=== PATIENT | female | born 2000 | race Caucasian/White ===

== ENCOUNTER 2022-03-08 10:16 | Inpatient (IN) ==
--- NOTE | 2022-03-08 10:44 | Emergency Department Note ---
Impression & Plan Suicidal ideation, Depression ED Provider Note NAME: BHARATH ANAYA AGE: 22 SEX: F ARRIVES VIA: Walk-In INFORMANT: Patient ED PROVIDER(S): Vinod Williamson MD CHIEF COMPLAINT: Suicidal ideation PLAN: Disposition: Inpatient psychiatric admission, 3 S. MEDICAL DECISION MAKING: The patient is a pleasant 22-year-old woman with a past medical history of PTSD and borderline personality disorder who presents to the emergency department accompanied by her mother for evaluation of worsening depression/suicidal ideation and the development of command auditory hallucinations over the past month after being discharged from inpatient psychiatric admission [place] where she reports she was started on Lexapro. She feels as though her worsening symptoms are related to the medication. She denies any recent illness including fevers, chills, cough, congestion, GI or symptoms. She reports that she has a history of depression and suicidal ideation. She reports that when she was in the 10th grade she did cut her legs. Patient reports that she wants help and is interested in voluntary inpatient psychiatric admission. On arrival the patient is melancholy and tearful appearing but no acute distress, afebrile stable vital signs. She reports she herself does not want to hurt her self and has been doing what she can to get better but feels as though she cannot control the feelings in her head and the voice in her head that is telling her to kill her self. She is worried she could act them out. WBC, H/H and platelets within normal limits. Chemistry without metabolic acidosis. Electrolytes LFTs are unremarkable. TSH within normal limits. hCG was negative. UA appears contaminated and the patient denies any urinary symptoms. Drug screen was positive for THC. Covid-19 RNA, NAAT negative. The patient was medically cleared. The patient was accepted to 3 S. and 201 was signed. Triage Nursing notes reviewed and agree them. Prior medical records reviewed Vital Signs: reviewed and remarkable for no significant abnormalities Differential diagnosis: Mood disorder, infection, hypoglycemia, electrolyte abnormalities, cardiac sources, intracerebral event, toxicologic, trauma, neurologic, as well as other pathologies. ER treatment provided: See below. Laboratory studies: See below HPI: The patient is a pleasant 22-year-old woman with a past medical history of PTSD and borderline personality disorder who presents to the emergency department accompanied by her mother for evaluation of worsening depression/suicidal ideation and the development of command auditory hallucinations over the past month after being discharged from inpatient psychiatric admission [place] where she reports she was started on Lexapro. She feels as though her worsening symptoms are related to the medication. She denies any recent illness including fevers, chills, cough, congestion, GI or symptoms. She reports that she has a history of depression and suicidal ideation. She reports that when she was in the 10th grade she did cut her legs. ROS: See above HPI for pertinent positives & negatives. A total of 10 systems reviewed and were otherwise negative. VITALS:See Below PHYSICAL EXAMINATION: GENERAL: Awake, alert, melancholy/tearful-appearing, in no distress HENT: Normocephalic, atraumatic. Oropharynx unremarkable. EYES: Normal conjunctiva. Sclera non-icteric. NECK: Supple. No nuchal rigidity. FROM. No JVD. RESPIRATORY: Clear to auscultation. CARDIAC: Regular rate, normal rhythm. Extremities warm and well perfused. Pulses equal. ABDOMEN: Soft, non-distended. No tenderness to palpation. No rebound or guarding. No masses. RECTAL: Deferred. MUSCULOSKELETAL: Chest examination reveals no tenderness. The back is symmetrical on inspection without obvious abnormality. There is no CVA te nderness to palpation. No joint edema. LOWER EXTREMITIES: Calves are equal size bilaterally and non-tender. No edema. No discoloration. NEURO: Normal sensorium. No sensory or motor deficits noted. SKIN: No rash or jaundice noted. PSYCH: Reports depression, SI, Command auditory hallucinations. Vinod Williamson MD Past Med/Surg History Medical History Borderline personality disorder PTSD (post-traumatic stress disorder) Family History Other Family history non-contributory Social History Smoking Status: Former smoker Tobacco Type: Cigarettes Preferred Language: Filipino Communication Ability: Effective [employer] Marker Required: No Beliefs That Will Affect Care: None Feels Safe at Home: Yes Assistive Devices: None Allergies Allergies Allergy/AdvReac Type Severity Reaction Status Date / Time No Known Allergies Allergy Unverified 03/08/22 10:56 Home Meds Home Medications Medication Instructions Recorded Confirmed Control 03/08/22 escitalopram oxalate 20 mg tablet 20 mg PO DAILY 03/08/22 03/08/22 (Lexapro) omeprazole 20 mg capsule,delayed 20 mg PO DAILY 03/08/22 03/08/22 release Results & Data (ED) Vital Signs Vital Signs - 24 hr 03/08/22 10:23 03/08/22 14:39 03/08/22 15:00 Temperature 36.8 C 36.8 C Temperature Source Temporal Artery Scan Oral Pulse Rate 85 Pulse Rate [Finger] 68 85 Pulse Rhythm [Finger] Regular Pulse Strength [Finger] Normal Respiratory Rate 18 18 18 Respiratory Effort / Characteristics Non-Labored Spontaneous Non-Labored Spontaneous Respiratory Depth Normal Respiratory Pattern Regular Regular Blood Pressure 135/87 Blood Pressure [Right Arm] 107/62 107/62 Blood Pressure Mean 103 Blood Pressure Mean [Right Arm] 77 77 Blood Pressure Position [Right Arm] Lying Pulse Oximetry 99 98 98 Oxygen Delivery Method Room Air Room Air Room Air Sepsis Recent Fever Within 48 Hours No Sepsis New/Unexplained Change in Mental Status No Sepsis Action Taken by Nursing No Action Required Laboratory Data Attestation: I reviewed the patient's lab results. Result diagrams: 03/08/22 10:44 03/08/22 10:44 Lab Results 03/08/22 03/08/22 03/08/22 Range/Units 10:34 10:34 10:44 WBC 7.41 (4.8-10.8) K/uL RBC 4.35 (4.2-5.4) M/uL Hgb 13.5 (12.0-16.0) g/dL Hct 39.0 (37-47) % MCV 89.7 (80-100) fL MCH 31.0 (25-34) pg MCHC 34.6 (32-36) g/dL RDW Std Deviation 40.6 (36.4-46.3) fL RDW Coeff of Reuben 12.4 (11.5-14.5) % Plt Count 325 (130-400) K/uL MPV 8.9 (7.4-10.4) fL Immature Gran % (Auto) 0.1 % Neut % (Auto) 74.8 % Lymph % (Auto) 17.5 % Garvin % (Auto) 5.9 % Eos % (Auto) 1.3 % Baso % (Auto) 0.4 % Neut # (Auto) 5.53 (1.4-6.5) K/uL Lymph # (Auto) 1.30 (1.2-3.4) K/uL Garvin # (Auto) 0.44 (0.11-0.59) K/uL Eos # (Auto) 0.10 (0-0.5) K/uL Baso # (Auto) 0.03 (0-0.2) K/uL Immature Gran # (Auto) 0.01 (0.00-0.02) K/uL Sodium (136-145) mmol/L Potassium (3.5-5.1) mmol/L Chloride (98-107) mmol/L Carbon Dioxide (21-32) mmol/L Anion Gap (3-11) BUN (6-23) mg/dl Creatinine (0.6-1.2) mg/dl Est Cr Clr Drug Dosing ml/min Est GFR ( Amer) ml/min Est GFR (Non-Af Amer) ml/min BUN/Creatinine Ratio (10-20) Glucose (70-99(Fasting)) mg/dl Calcium (8.5-10.1) mg/dl Total Bilirubin (0.2-1.0) mg/dl AST (13-39) U/L ALT (7-52) U/L Alkaline Phosphatase (34-104) U/L Total Protein (6.0-8.3) gm/dl Albumin (3.4-5.0) gm/dl Globulin (2.5-4.0) gm/dl Albumin/Globulin Ratio (0.9-2) TSH (0.300-4.500) uIu/ml HCG, Qual (Negative) Urine Color Yellow Urine Appearance Clear (Clear) Urine pH 6.5 (4.5-7.5) Ur Specific [place] 1.018 (1.000-1.030) Urine Protein 2+ H (Negative) Urine Glucose (UA) Negative (Negative) Urine Ketones 1+ H (Negative) Urine Blood Negative (Negative) Urine Nitrite Negative (Negative) Urine Bilirubin Negative (Negative) Urine Urobilinogen Negative (Negative) Ur Leukocyte Esterase Negative (Negative) Urine WBC (Auto) 1-5 (0-5) /hpf Urine RBC (Auto) 0-4 (0-4) /hpf U Hyaline Cast (Auto) 1-5 (0-5) /lpf U Epithel Cells (Auto) >30 H (0-5) /lpf Urine Bacteria (Auto) 1+ H (Negative) POC Ur Test (NEG) Salicylates (3.0-30) mg/dl Urine Opiates Screen Neg (Neg) Ur Methadone, Qual Neg (Neg) Acetaminophen (10-30) ug/ml Urine Barbiturates Neg (Neg) Ur Phencyclidine (PCP) Neg (Neg) U Amphetamin/Meth Scrn Neg (Neg) MDMA (Ecstasy) Screen Neg (Neg) U Benzodiazepines Scrn Neg (Neg) Ur Cocaine Metabolite Neg (Neg) U Marijuana (THC) Screen Pos H (Neg) Ethyl Alcohol mg/dL (<10.0) mg/dl SARS-CoV-2, RNA, NAAT (NEGATIVE) 03/08/22 03/08/22 03/08/22 Range/Units 10:44 10:44 10:44 WBC (4.8-10.8) K/uL RBC (4.2-5.4) M/uL Hgb (12.0-16.0) g/dL Hct (37-47) % MCV (80-100) fL MCH (25-34) pg MCHC (32-36) g/dL RDW Std Deviation (36.4-46.3) fL RDW Coeff of Reuben (11.5-14.5) % Plt Count (130-400) K/uL MPV (7.4-10.4) fL Immature Gran % (Auto) % Neut % (Auto) % Lymph % (Auto) % Garvin % (Auto) % Eos % (Auto) % Baso % (Auto) % Neut # (Auto) (1.4-6.5) K/uL Lymph # (Auto) (1.2-3.4) K/uL Garvin # (Auto) (0.11-0.59) K/uL Eos # (Auto) (0-0.5) K/uL Baso # (Auto) (0-0.2) K/uL Immature Gran # (Auto) (0.00-0.02) K/uL Sodium 137 (136-145) mmol/L Potassium 4.2 (3.5-5.1) mmol/L Chloride 108 H (98-107) mmol/L Carbon Dioxide 21 (21-32) mmol/L Anion Gap 8 (3-11) BUN 10 (6-23) mg/dl Creatinine 0.69 (0.6-1.2) mg/dl Est Cr Clr Drug Dosing 125.2 ml/min Est GFR ( Amer) 144.2 ml/min Est GFR (Non-Af Amer) 124.4 ml/min BUN/Creatinine Ratio 14.5 (10-20) Glucose 85 (70-99(Fasting)) mg/dl Calcium 9.4 (8.5-10.1) mg/dl Total Bilirubin 0.7 (0.2-1.0) mg/dl AST 15 (13-39) U/L ALT 12 (7-52) U/L Alkaline Phosphatase 59 (34-104) U/L Total Protein 7.6 (6.0-8.3) gm/dl Albumin 4.7 (3.4-5.0) gm/dl Globulin 2.9 (2.5-4.0) gm/dl Albumin/Globulin Ratio 1.6 (0.9-2) TSH 1.635 (0.300-4.500) uIu/ml HCG, Qual (Negative) Urine Color Urine Appearance (Clear) Urine pH (4.5-7.5) Ur Specific [place] (1.000-1.030) Urine Protein (Negative) Urine Glucose (UA) (Negative) Urine Ketones (Negative) Urine Blood (Negative) Urine Nitrite (Negative) Urine Bilirubin (Negative) Urine Urobilinogen (Negative) Ur Leukocyte Esterase (Negative) Urine WBC (Auto) (0-5) /hpf Urine RBC (Auto) (0-4) /hpf U Hyaline Cast (Auto) (0-5) /lpf U Epithel Cells (Auto) (0-5) /lpf Urine Bacteria (Auto) (Negative) POC Ur Test (NEG) Salicylates < 3.0 L (3.0-30) mg/dl Urine Opiates Screen (Neg) Ur Methadone, Qual (Neg) Acetaminophen < 3 L (10-30) ug/ml Urine Barbiturates (Neg) Ur Phencyclidine (PCP) (Neg) U Amphetamin/Meth Scrn (Neg) MDMA (Ecstasy) Screen (Neg) U Benzodiazepines Scrn (Neg) Ur Cocaine Metabolite (Neg) U Marijuana (THC) Screen (Neg) Ethyl Alcohol mg/dL (<10.0) mg/dl SARS-CoV-2, RNA, NAAT (NEGATIVE) 03/08/22 03/08/22 03/08/22 Range/Units 10:44 10:44 10:59 WBC (4.8-10.8) K/uL RBC (4.2-5.4) M/uL Hgb (12.0-16.0) g/dL Hct (37-47) % MCV (80-100) fL MCH (25-34) pg MCHC (32-36) g/dL RDW Std Deviation (36.4-46.3) fL RDW Coeff of Reuben (11.5-14.5) % Plt Count (130-400) K/uL MPV (7.4-10.4) fL Immature Gran % (Auto) % Neut % (Auto) % Lymph % (Auto) % Garvin % (Auto) % Eos % (Auto) % Baso % (Auto) % Neut # (Auto) (1.4-6.5) K/uL Lymph # (Auto) (1.2-3.4) K/uL Garvin # (Auto) (0.11-0.59) K/uL Eos # (Auto) (0-0.5) K/uL Baso # (Auto) (0-0.2) K/uL Immature Gran # (Auto) (0.00-0.02) K/uL Sodium (136-145) mmol/L Potassium (3.5-5.1) mmol/L Chloride (98-107) mmol/L Carbon Dioxide (21-32) mmol/L Anion Gap (3-11) BUN (6-23) mg/dl Creatinine (0.6-1.2) mg/dl Est Cr Clr Drug Dosing ml/min Est GFR ( Amer) ml/min Est GFR (Non-Af Amer) ml/min BUN/Creatinine Ratio (10-20) Glucose (70-99(Fasting)) mg/dl Calcium (8.5-10.1) mg/dl Total Bilirubin (0.2-1.0) mg/dl AST (13-39) U/L ALT (7-52) U/L Alkaline Phosphatase (34-104) U/L Total Protein (6.0-8.3) gm/dl Albumin (3.4-5.0) gm/dl Globulin (2.5-4.0) gm/dl Albumin/Globulin Ratio (0.9-2) TSH (0.300-4.500) uIu/ml HCG, Qual Negative (Negative) Urine Color Urine Appearance (Clear) Urine pH (4.5-7.5) Ur Specific [place] (1.000-1.030) Urine Protein (Negative) Urine Glucose (UA) (Negative) Urine Ketones (Negative) Urine Blood (Negative) Urine Nitrite (Negative) Urine Bilirubin (Negative) Urine Urobilinogen (Negative) Ur Leukocyte Esterase (Negative) Urine WBC (Auto) (0-5) /hpf Urine RBC (Auto) (0-4) /hpf U Hyaline Cast (Auto) (0-5) /lpf U Epithel Cells (Auto) (0-5) /lpf Urine Bacteria (Auto) (Negative) POC Ur Test NEG (NEG) Salicylates (3.0-30) mg/dl Urine Opiates Screen (Neg) Ur Methadone, Qual (Neg) Acetaminophen (10-30) ug/ml Urine Barbiturates (Neg) Ur Phencyclidine (PCP) (Neg) U Amphetamin/Meth Scrn (Neg) MDMA (Ecstasy) Screen (Neg) U Benzodiazepines Scrn (Neg) Ur Cocaine Metabolite (Neg) U Marijuana (THC) Screen (Neg) Ethyl Alcohol mg/dL < 10.0 (<10.0) mg/dl SARS-CoV-2, RNA, NAAT (NEGATIVE) 03/08/22 Range/Units 11:24 WBC (4.8-10.8) K/uL RBC (4.2-5.4) M/uL Hgb (12.0-16.0) g/dL Hct (37-47) % MCV (80-100) fL MCH (25-34) pg MCHC (32-36) g/dL RDW Std Deviation (36.4-46.3) fL RDW Coeff of Reuben (11.5-14.5) % Plt Count (130-400) K/uL MPV (7.4-10.4) fL Immature Gran % (Auto) % Neut % (Auto) % Lymph % (Auto) % Garvin % (Auto) % Eos % (Auto) % Baso % (Auto) % Neut # (Auto) (1.4-6.5) K/uL Lymph # (Auto) (1.2-3.4) K/uL Garvin # (Auto) (0.11-0.59) K/uL Eos # (Auto) (0-0.5) K/uL Baso # (Auto) (0-0.2) K/uL Immature Gran # (Auto) (0.00-0.02) K/uL Sodium (136-145) mmol/L Potassium (3.5-5.1) mmol/L Chloride (98-107) mmol/L Carbon Dioxide (21-32) mmol/L Anion Gap (3-11) BUN (6-23) mg/dl Creatinine (0.6-1.2) mg/dl Est Cr Clr Drug Dosing ml/min Est GFR ( Amer) ml/min Est GFR (Non-Af Amer) ml/min BUN/Creatinine Ratio (10-20) Glucose (70-99(Fasting)) mg/dl Calcium (8.5-10.1) mg/dl Total Bilirubin (0.2-1.0) mg/dl AST (13-39) U/L ALT (7-52) U/L Alkaline Phosphatase (34-104) U/L Total Protein (6.0-8.3) gm/dl Albumin (3.4-5.0) gm/dl Globulin (2.5-4.0) gm/dl Albumin/Globulin Ratio (0.9-2) TSH (0.300-4.500) uIu/ml HCG, Qual (Negative) Urine Color Urine Appearance (Clear) Urine pH (4.5-7.5) Ur Specific [place] (1.000-1.030) Urine Protein (Negative) Urine Glucose (UA) (Negative) Urine Ketones (Negative) Urine Blood (Negative) Urine Nitrite (Negative) Urine Bilirubin (Negative) Urine Urobilinogen (Negative) Ur Leukocyte Esterase (Negative) Urine WBC (Auto) (0-5) /hpf Urine RBC (Auto) (0-4) /hpf U Hyaline Cast (Auto) (0-5) /lpf U Epithel Cells (Auto) (0-5) /lpf Urine Bacteria (Auto) (Negative) POC Ur Test (NEG) Salicylates (3.0-30) mg/dl Urine Opiates Screen (Neg) Ur Methadone, Qual (Neg) Acetaminophen (10-30) ug/ml Urine Barbiturates (Neg) Ur Phencyclidine (PCP) (Neg) U Amphetamin/Meth Scrn (Neg) MDMA (Ecstasy) Screen (Neg) U Benzodiazepines Scrn (Neg) Ur Cocaine Metabolite (Neg) U Marijuana (THC) Screen (Neg) Ethyl Alcohol mg/dL (<10.0) mg/dl SARS-CoV-2, RNA, NAAT NEGATIVE (NEGATIVE) Administered Medications Discontinued Medications Lorazepam (Lorazepam 1 Mg Tab) 1 mg SL NOW STA Stop: 03/08/22 13:05 Last Admin: 03/08/22 13:11 Dose: 1 mg Documented by: [id number] Discharge Plan Visit Data Chief Complaint: Mental Health Evaluation Stated Complaint: SUICIDAL THOUGHTS Discharge Problem: Suicidal ideation, Depression Patient Disposition: Admitted As Inpatient Discharge Instructions Interventions: ED Discharge Assessment Last Done: 03/08/22 14:42
[2022-03-08 11:09] LABS: Basophils # (auto) 0.03 K/uL (0-0.2); Basophils % (auto) 0.4 %; Eosinophils % (auto) 1.3 %; Hemoglobin 13.5 g/dL (12.0-16.0); Immature Granulocytes # (auto) 0.01 K/uL (0.00-0.02); Immature Granulocytes % (auto) 0.1 %; Lymphocytes % (auto) 17.5 %; Mean Corpuscular Hgb Conc 34.6 g/dL (32-36); Mean Corpuscular Volume 89.7 fL (80-100); Mean Platelet Volume 8.9 fL (7.4-10.4); Monocytes # (auto) 0.44 K/uL (0.11-0.59); Monocytes % (auto) 5.9 %; Neutrophils # (auto) 5.53 K/uL (1.4-6.5); Neutrophils % (auto) 74.8 %; Platelet Count 325 K/uL (130-400); RDW Coefficient of Variation 12.4 % (11.5-14.5); RDW Standard Deviation 40.6 fL (36.4-46.3); Red Blood Count 4.35 M/uL (4.2-5.4); White Blood Count 7.41 K/uL (4.8-10.8)
[2022-03-08 11:12] LABS: Appearance Urine Clear (Clear); Bacteria Urine Automated 1+ (Negative); Bilirubin Urine Negative (Negative); Blood Urine Negative (Negative); Color Urine Yellow; Epithelial Cell Urine Auto >30 /lpf (0-5); Glucose Urine UA Negative (Negative); Ketones Urine 1+ (Negative); Leukocyte Esterase Urine Negative (Negative); Nitrite Urine Negative (Negative); Protein Urine 2+ (Negative); RBC Urine Automated 0-4 /hpf (0-4); Specific Gravity Urine 1.018 (1.000-1.030); Urobilinogen Urine Negative (Negative); pH Urine 6.5 (4.5-7.5)
[2022-03-08 11:18] LABS: Albumin Globulin Ratio 1.6 (0.9-2); Albumin Level 4.7 gm/dl (3.4-5.0); BUN Creatinine Ratio 14.5 (10-20); Bilirubin,Total 0.7 mg/dl (0.2-1.0); Calcium 9.4 mg/dl (8.5-10.1); Creatinine Clr Calc Pharmacy 125.2 ml/min; Est GFR (African American) 144.2 ml/min; Est GFR (Non-African American) 124.4 ml/min; Globulin 2.9 gm/dl (2.5-4.0); Potassium 4.2 mmol/L (3.5-5.1); Total Protein 7.6 gm/dl (6.0-8.3)
[2022-03-08 11:28] LABS: Acetaminophen < 3 ug/ml (10-30); Salicylate < 3.0 mg/dl (3.0-30)
[2022-03-08 11:37] LABS: Amphetamines+Metham, Urine Neg (Neg); Barbiturates, Urine Neg (Neg); Benzodiazepine, Urine Neg (Neg); Cocaine, Urine Neg (Neg); MDMA (Ecstacy), Urine Neg (Neg); Methadone, Urine Neg (Neg); Opiate, Urine Neg (Neg); Phencyclidine, Urine Neg (Neg)
[2022-03-08 12:31] LABS: Pregnancy Test, Serum Negative (Negative)
[2022-03-08] MEDS ORDERED: LORazepam 1 MG TAB SL STA (13:04)
[2022-03-08] MEDS ORDERED: BISMUTH SUBSALICYLATE LIQD 236 ML PO PRN (15:01)
[2022-03-08] MEDS ORDERED: hydrOXYzine HCl 25 MG TAB PO PRN (15:01)
[2022-03-08] MEDS ORDERED: SODIUM CHLORIDE 0.65% NA SOLN 45 ML (OCEAN) PRN (15:01)
[2022-03-08] MEDS ORDERED: ALUMINUM/MAGNESIUM SUSP 30 ML UDC PO PRN (15:01)
[2022-03-08] MEDS ORDERED: MAGNESIUM HYDROXIDE SUSP 30 ML UDC PO PRN (15:01)
[2022-03-08] MEDS ORDERED: ACETAMINOPHEN 325 MG TAB PO PRN (15:01)
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
[2022-03-09] MEDS: hydrOXYzine HCl 25 MG TAB PO PRN (09:37)
[2022-03-09] MEDS: risperiDONE 0.5 MG TABLET PO PRN (10:43)
[2022-03-09] MEDS ORDERED: ESCITALOPRAM OXALATE 10 MG TAB PO ONE (16:03)
[2022-03-09] MEDS ORDERED: PRAZOSIN HCL 1 MG CAP PO SCH (22:00)
[2022-03-10] MEDS: buPROPion XL 150 MG TABCR PO SCH (08:14)
[2022-03-10] MEDS: PANTOprazole 40 MG TAB PO SCH (08:14)
[2022-03-10] MEDS: risperiDONE 0.5 MG TABLET PO PRN (08:23)
--- NOTE | 2022-03-10 08:33 | Psychiatric Progress Note ---
Date of Service March 10, 2022 Impression / Recommendations Impression The patient is a 22 year old with a history of BPD, PTSD, JEANINE, depression who was admitted for worsening depression and command auditory hallucinations with SI and plan. Diagnostically unclear, most likely MDD with psychotic features versus complex PTSD vs activation from SSRI but no hypomanic/manic features, possible cannabis contribution but less likely. No other signs concerning for primary psychotic disorder and no overt disorganized thought content or behaviors. The patient is deemed unstable and requires psychiatric hospitalization for diagnostic clarification, safety and stabilization, medication management and development of further coping skills. 03/10/22: Ongoing depression, and cAH. Discontinuing prazosin as caused sign orthostatic hypotension. Continue Wellbutrin, tolerating well with some benefit. Add trazodone at [facility], she consents to this, reviewed side effects including but not limited to sedation, orthostatic hypotension. No further SSRI withdrawal side effects, will discontinue lexapro. (1) Major depressive disorder, single episode with psychotic features with anxious distress: (2) Unspecified psychosis not due to a substance or known physiological condition: (3) Post traumatic stress disorder (PTSD): (4) Suicidal ideation: (5) Borderline personality disorder: (6) Depression: 03/10/22: Stop prazosin, start trazodone. Continue Wellbutrin. Continue risperidone prn. Fasting labs tomorrow AM. Discontinue lexapro. 03/09/22: The patient was admitted to the [facility] on q15 min checks (behavioral with suicide precautions) for safety. The patient will participate in group, recreational, and milieu therapies and will be offered additional individual and family sessions as clinically appropriate. -taper lexapro to 10mg qd and then slowly to discontinuation -fasting labs in AM -risperidone 0.5mg BID prn -Wellbutrin XL 150mg qAM -prazosin 1mg qhs Inventory Assets Strengths: employed, trauma survivor, good supports, willing to seek treatment Needs: safety and stabilization, medication adjustment, additional coping skills, increased outpatient services Suicide Risk Level Suicide Risk Level Comments: High-Moderate due to severe depression with SI and cAH but no plan or intent, feels safe in the hospital, able to safety contract and agrees to let nursing/staff know should they develop plan, intent or feel unable to remain safe. 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 Chief Complaint "I'm alright". Review of Systems Sleep Information Total Hours of Sleep: 8 Sleep Comments: pt on q-15 minute checks Meal Information Percent Meal Consumed - Lunch: 100 Percent Meal Consumed - Dinner: 90 Subjective Subjective Patient was seen & assessed and interval progress reviewed with treatment team nursing and social work. Remains very isolative to her room. Did come out of her room to eat dinner. Slept well last night. Attended groups today. No side effects from Wellbutrin and had more motivation and energy. Still had night terror with prazosin and felt very lightheaded this morning, had to sit down during morning shower till it passed. Voices "more at bay" today. SI briefly in the morning a few times and due to rude comments from a peer. Still automatic negative thoughts of "everyone hates you". Physical Exam Psychiatric Orientation: alert and oriented x 3 Apperance: appropriately dressed and appropriately groomed Eye Contact: good eye contact Motor Behavior: no abnormal motor movements Speech: normal rate/rhythm/volume of speech Affect: + depressed affect and + anxious affect Mood: + depressed mood and + anxious mood Thought Process: goal directed thought process Thought Content: reality based without delusions Suicidal Thoughts: denies suicidal intent; + reports suicidal thoughts (SI related to cAH, feels safe here) and + reports suicidal plan (prior to admission, feels safe in hospital and no current plan) Homicidal Thoughts: denies homicidal thoughts Hallucinations: + auditory hallucinations (command to hurt herself); no visual hallucinations Cognition: recent memory grossly intact, remote memory grossly intact, attention grossly intact and language grossly intact Estimated Intelligence: consistent with education level Insight: + fair insight Judgement: + fair judgement Vital Signs (Past 24 Hours) Last Vital Signs Temp 36.9 C 03/10/22 06:32 Pulse 105 H 03/10/22 06:34 Resp 16 03/10/22 06:32 BP 132/88 03/10/22 06:34 Pulse Ox 98 03/08/22 15:00 Results & Data ([facility]) Current Inpatient Medications Current Inpatient Medications: Current Inpatient Medications Acetaminophen (Acetaminophen 325 Mg Tab) 650 mg PO Q4H PRN PRN Reason: Headache or Minor Fever Stop: 04/07/22 15:00 Al Hydrox/Mg Hydrox/Simethicone (Aluminum/Magnesium Susp 30 Ml Udc) 30 ml PO Q4H PRN PRN Reason: GI Upset Stop: 04/07/22 15:00 Bismuth Subsalicylate (Bismuth Subsalicylate Liqd 236 Ml) 15 ml PO PRN PRN PRN Reason: Loose Stool Stop: 04/07/22 15:00 Bupropion HCl (Bupropion Xl 150 Mg Tabcr) 150 mg PO QAM BIJU Stop: 04/09/22 08:59 Last Admin: 03/10/22 08:14 Dose: 150 mg Documented by: Hydroxyzine HCl (Hydroxyzine Hcl 25 Mg Tab) 50 mg PO HSZ PRN PRN Reason: Insomnia Stop: 04/07/22 15:00 Hydroxyzine HCl (Hydroxyzine Hcl 25 Mg Tab) 25 mg PO Q4H PRN PRN Reason: Anxiety Stop: 04/07/22 15:00 Last Admin: 03/09/22 09:37 Dose: 25 mg Documented by: Magnesium Hydroxide (Magnesium Hydroxide Susp 30 Ml Udc) 30 ml PO DAILY PRN PRN Reason: Constipation Stop: 04/07/22 15:00 Pantoprazole Sodium (Pantoprazole 40 Mg Tab) 40 mg PO DAILY BIJU; Protocol Stop: 04/09/22 08:59 Last Admin: 03/10/22 08:14 Dose: 40 mg Documented by: Prazosin HCl (Prazosin Hcl 1 Mg Cap) 1 mg PO HS BIJU Stop: 04/08/22 21:59 Last Admin: 03/09/22 21:59 Dose: 1 mg Documented by: Risperidone (Risperidone 0.5 Mg Tablet) 0.5 mg PO BID PRN PRN Reason: Anxiety/Agitation Stop: 04/08/22 20:59 Last Admin: 03/10/22 08:23 Dose: 0.5 mg Documented by: Sodium Chloride (Sodium Chloride 0.65% Na Soln 45 Ml ([place])) 1 - 2 sprays NA PRN PRN PRN Reason: Nasal Dryness/Congestion Stop: 04/07/22 15:00 Mental Health & Subst Abuse Tx Therapist Name of Therapist: Jenn Walters @[facility] Date of Therapist Appointment: 03/08/22 Post Discharge Appointments Primary Care Physician Name Of Family Doctor: Galen Bynum (1) Depression Depression Type: unspecified Qualified Code(s): F32.A - Depression, unspecified
[2022-03-10 11:26] LABS: Marijuana Quant, GCMS Urine 1293 ng/mL (<5)
[2022-03-10] MEDS: traZODone HCL 50 MG TAB PO SCH (20:48)
[2022-03-10] MEDS: hydrOXYzine HCl 25 MG TAB PO PRN (20:48)
[2022-03-11 08:33] LABS: Chol HDL Ratio 3.5 (0-5)
--- NOTE | 2022-03-11 08:44 | Psychiatric Progress Note ---
Date of Service March 11, 2022 Impression / Recommendations Impression The patient is a 22 year old with a history of BPD, PTSD, JEANINE, depression who was admitted for worsening depression and command auditory hallucinations with SI and plan. Diagnostically unclear, most likely MDD with psychotic features versus complex PTSD vs activation from SSRI but no hypomanic/manic features, possible cannabis contribution but less likely. No other signs concerning for primary psychotic disorder and no overt disorganized thought content or behaviors. The patient is deemed unstable and requires psychiatric hospitalization for diagnostic clarification, safety and stabilization, medication management and development of further coping skills. 03/11/22: Ongoing depression but lessening of cAH, still with some episodes of SI. Tolerated trazodone well without side effects and still finding Wellbutrin helpful. Reviewed fasting labs which are normal. (1) Major depressive disorder, single episode with psychotic features with anxious distress: (2) Unspecified psychosis not due to a substance or known physiological condition: (3) Post traumatic stress disorder (PTSD): (4) Suicidal ideation: (5) Borderline personality disorder: (6) Depression: 03/11/22: Continue current medications and tx plan. 03/10/22: Stop prazosin, start trazodone. Continue Wellbutrin. Continue risperidone prn. Fasting labs tomorrow AM. Discontinue lexapro. 03/09/22: The patient was admitted to the [facility]) on q15 min checks (behavioral with suicide precautions) for safety. The patient will participate in group, recreational, and milieu therapies and will be offered additional individual and family sessions as clinically appropriate. -taper lexapro to 10mg qd and then slowly to discontinuation -fasting labs in AM -risperidone 0.5mg BID prn -Wellbutrin XL 150mg qAM -prazosin 1mg qhs Inventory Assets Strengths: employed, trauma survivor, good supports, willing to seek treatment Needs: safety and stabilization, medication adjustment, additional coping skills, increased outpatient services Suicide Risk Level Suicide Risk Level Comments: High-Moderate due to severe depression with SI and cAH but no plan or intent, feels safe in the hospital, able to safety contract and agrees to let nursing/staff know should they develop plan, intent or feel unable to remain safe. 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 Chief Complaint "I had a nightmare last night but it wasn't as awful". Review of Systems Sleep Information Total Hours of Sleep: 8.25 Sleep Comments: pt on q-15 minute checks Meal Information Percent Meal Consumed - Breakfast: 100 Percent Meal Consumed - Lunch: 100 Percent Meal Consumed - Dinner: 75 Subjective Subjective Patient was seen & assessed and interval progress reviewed with treatment team nursing and social work. A lot panic last night requiring a lot of reassurance, took a prn Vistaril and needed individual processing support from nursing. Slept better with trazodone, less panic and diaphoresis over night. No side effects from Wellbutrin finding it helpful for motivation and energy in the morning. Decrease in SI today. Physical Exam Psychiatric Orientation: alert and oriented x 3 Apperance: appropriately dressed and appropriately groomed Eye Contact: good eye contact Motor Behavior: no abnormal motor movements Speech: normal rate/rhythm/volume of speech Affect: + depressed affect and + anxious affect Mood: + depressed mood and + anxious mood Thought Process: goal directed thought process Thought Content: reality based without delusions Suicidal Thoughts: denies suicidal intent; + reports suicidal thoughts (SI related to cAH, feels safe here) and + reports suicidal plan (prior to admission, feels safe in hospital and no current plan) Homicidal Thoughts: denies homicidal thoughts Hallucinations: + auditory hallucinations (command to hurt herself); no visual hallucinations Cognition: recent memory grossly intact, remote memory grossly intact, attention grossly intact and language grossly intact Estimated Intelligence: consistent with education level Insight: + fair insight Judgement: + fair judgement Vital Signs (Past 24 Hours) Last Vital Signs Temp 36.8 C 03/11/22 06:40 Pulse 84 03/11/22 06:41 Resp 18 03/11/22 06:40 BP 118/76 03/11/22 06:41 Pulse Ox 98 03/08/22 15:00 Results & Data ([facility]) Laboratory Results Laboratory Results - last 24 hr 03/08/22 03/11/22 10:34 07:38 Fasting Glucose 86 Triglycerides 54 Cholesterol 185 LDL Cholesterol, Calc 121 VLDL Cholesterol, Calc 11 HDL Cholesterol 53 Cholesterol/HDL Ratio 3.5 U Marijuana THC Carboxy 1293 H Drug Screen Comment SEE NOTE Current Inpatient Medications Current Inpatient Medications: Current Inpatient Medications Acetaminophen (Acetaminophen 325 Mg Tab) 650 mg PO Q4H PRN PRN Reason: Headache or Minor Fever Stop: 04/07/22 15:00 Al Hydrox/Mg Hydrox/Simethicone (Aluminum/Magnesium Susp 30 Ml Udc) 30 ml PO Q4H PRN PRN Reason: GI Upset Stop: 04/07/22 15:00 Bismuth Subsalicylate (Bismuth Subsalicylate Liqd 236 Ml) 15 ml PO PRN PRN PRN Reason: Loose Stool Stop: 04/07/22 15:00 Bupropion HCl (Bupropion Xl 150 Mg Tabcr) 150 mg PO QAM BIJU Stop: 04/09/22 08:59 Last Admin: 03/10/22 08:14 Dose: 150 mg Documented by: Hydroxyzine HCl (Hydroxyzine Hcl 25 Mg Tab) 50 mg PO HSZ PRN PRN Reason: Insomnia Stop: 04/07/22 15:00 Hydroxyzine HCl (Hydroxyzine Hcl 25 Mg Tab) 25 mg PO Q4H PRN PRN Reason: Anxiety Stop: 04/07/22 15:00 Last Admin: 03/10/22 20:48 Dose: 25 mg Documented by: Magnesium Hydroxide (Magnesium Hydroxide Susp 30 Ml Udc) 30 ml PO DAILY PRN PRN Reason: Constipation Stop: 04/07/22 15:00 Pantoprazole Sodium (Pantoprazole 40 Mg Tab) 40 mg PO DAILY BIJU; Protocol Stop: 04/09/22 08:59 Last Admin: 03/10/22 08:14 Dose: 40 mg Documented by: Risperidone (Risperidone 0.5 Mg Tablet) 0.5 mg PO BID PRN PRN Reason: Anxiety/Agitation Stop: 04/08/22 20:59 Last Admin: 03/10/22 08:23 Dose: 0.5 mg Documented by: Sodium Chloride (Sodium Chloride 0.65% Na Soln 45 Ml ([place])) 1 - 2 sprays NA PRN PRN PRN Reason: Nasal Dryness/Congestion Stop: 04/07/22 15:00 Trazodone HCl (Trazodone Hcl 50 Mg Tab) 50 mg PO HS BIJU Stop: 04/09/22 21:59 Last Admin: 03/10/22 20:48 Dose: 50 mg Documented by: Mental Health & Subst Abuse Tx Therapist Name of Therapist: Jenn Walters @[facility] Date of Therapist Appointment: 03/08/22 Post Discharge Appointments Primary Care Physician Name Of Family Doctor: Galen Bynum (1) Depression Depression Type: unspecified Qualified Code(s): F32.A - Depression, unspecified
[2022-03-11] MEDS: buPROPion XL 150 MG TABCR PO SCH (08:55)
[2022-03-11] MEDS: PANTOprazole 40 MG TAB PO SCH (08:55)
[2022-03-11] MEDS: traZODone HCL 50 MG TAB PO SCH (20:39)
[2022-03-12] MEDS ORDERED: IBUPROFEN 600 MG TAB PO PRN (07:52)
[2022-03-12] MEDS: buPROPion XL 150 MG TABCR PO SCH (08:38)
[2022-03-12] MEDS: PANTOprazole 40 MG TAB PO SCH (08:38)
--- NOTE | 2022-03-12 08:43 | Psychiatric Progress Note ---
Date of Service March 12, 2022 Impression / Recommendations Impression The patient is a 22 year old with a history of BPD, PTSD, JEANINE, depression who was admitted for worsening depression and command auditory hallucinations with SI and plan. Diagnostically unclear, most likely MDD with psychotic features versus complex PTSD vs activation from SSRI but no hypomanic/manic features, possible cannabis contribution but less likely. No other signs concerning for primary psychotic disorder and no overt disorganized thought content or behaviors. The patient is deemed unstable and requires psychiatric hospitalization for diagnostic clarification, safety and stabilization, medication management and development of further coping skills. 03/12/22: Ongoing depression still with some periods of intrusive SI/cAH but this is lessening. Tolerated trazodone well without side effects and still finding Wellbutrin helpful. Processed ways to address negative automatic thoughts and impact of trauma. Needs family meeting. (1) Major depressive disorder, single episode with psychotic features with anxious distress: (2) Unspecified psychosis not due to a substance or known physiological condition: (3) Post traumatic stress disorder (PTSD): (4) Suicidal ideation: (5) Borderline personality disorder: (6) Depression: 03/12/22: Continue current medications. Needs family meeting. 03/11/22: Continue current medications and tx plan. 03/10/22: Stop prazosin, start trazodone. Continue Wellbutrin. Continue risperidone prn. Fasting labs tomorrow AM. Discontinue lexapro. 03/09/22: The patient was admitted to the [facility] ([facility] mental health unit) on q15 min checks (behavioral with suicide precautions) for safety. The patient will participate in group, recreational, and milieu therapies and will be offered additional individual and family sessions as clinically appropriate. -taper lexapro to 10mg qd and then slowly to discontinuation -fasting labs in AM -risperidone 0.5mg BID prn -Wellbutrin XL 150mg qAM -prazosin 1mg qhs Inventory Assets Strengths: employed, trauma survivor, good supports, willing to seek treatment Needs: safety and stabilization, medication adjustment, additional coping skills, increased outpatient services Suicide Risk Level Suicide Risk Level Comments: High-Moderate due to severe depression with SI and cAH but no plan or intent, feels safe in the hospital, able to safety contract and agrees to let nursing/staff know should they develop plan, intent or feel unable to remain safe. 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 Chief Complaint "I had horrible cramps this morning". Review of Systems Sleep Information Total Hours of Sleep: 7.25 Sleep Comments: pt on q-15 minute checks Meal Information Percent Meal Consumed - Breakfast: 30 Percent Meal Consumed - Lunch: 100 Percent Meal Consumed - Dinner: 75 Subjective Subjective Patient was seen & assessed and interval progress reviewed with treatment team nursing and social work. Out of her room and interactive. Notes she had strong and intrusive thoughts of SI last night to cut her throat but utilized her coping skills and the thoughts went away after about the 6th skill of calling her friend's mom for support. Today no SI and no urges for self-harm. Bad cramps today as she stared her menses. Continues to find the medication helpful, still having vivid dreams but notes that her nightmares are subsiding. Continues to have a lot of negative thoughts i.e. "no one wants to hear you speak, you're worthless". Physical Exam Psychiatric Orientation: alert and oriented x 3 Apperance: appropriately dressed and appropriately groomed Eye Contact: good eye contact Motor Behavior: no abnormal motor movements Speech: normal rate/rhythm/volume of speech Affect: + depressed affect and + anxious affect Mood: + depressed mood and + anxious mood Thought Process: goal directed thought process Thought Content: reality based without delusions Suicidal Thoughts: denies suicidal intent; + reports suicidal thoughts (SI related to cAH, feels safe here) and + reports suicidal plan (prior to admission, feels safe in hospital and no current plan) Homicidal Thoughts: denies homicidal thoughts Hallucinations: + auditory hallucinations (command to hurt herself); no visual hallucinations Cognition: recent memory grossly intact, remote memory grossly intact, attention grossly intact and language grossly intact Estimated Intelligence: consistent with education level Insight: + fair insight Judgement: + fair judgement Vital Signs (Past 24 Hours) Last Vital Signs Temp 36.6 C 03/12/22 06:00 Pulse 79 03/12/22 06:00 Resp 18 03/12/22 06:00 BP 102/71 03/12/22 06:29 Pulse Ox 98 03/08/22 15:00 Results & Data ([facility]) Current Inpatient Medications Current Inpatient Medications: Current Inpatient Medications Acetaminophen (Acetaminophen 325 Mg Tab) 650 mg PO Q4H PRN PRN Reason: Headache or Minor Fever Stop: 04/07/22 15:00 Last Admin: 03/12/22 07:42 Dose: 650 mg Documented by: Al Hydrox/Mg Hydrox/Simethicone (Aluminum/Magnesium Susp 30 Ml Udc) 30 ml PO Q4H PRN PRN Reason: GI Upset Stop: 04/07/22 15:00 Bismuth Subsalicylate (Bismuth Subsalicylate Liqd 236 Ml) 15 ml PO PRN PRN PRN Reason: Loose Stool Stop: 04/07/22 15:00 Bupropion HCl (Bupropion Xl 150 Mg Tabcr) 150 mg PO QAM BIJU Stop: 04/09/22 08:59 Last Admin: 03/12/22 08:38 Dose: 150 mg Documented by: Hydroxyzine HCl (Hydroxyzine Hcl 25 Mg Tab) 50 mg PO HSZ PRN PRN Reason: Insomnia Stop: 04/07/22 15:00 Hydroxyzine HCl (Hydroxyzine Hcl 25 Mg Tab) 25 mg PO Q4H PRN PRN Reason: Anxiety Stop: 04/07/22 15:00 Last Admin: 03/10/22 20:48 Dose: 25 mg Documented by: Ibuprofen (Ibuprofen 600 Mg Tab) 600 mg PO Q8H PRN PRN Reason: Pain Stop: 04/11/22 07:51 Magnesium Hydroxide (Magnesium Hydroxide Susp 30 Ml Udc) 30 ml PO DAILY PRN PRN Reason: Constipation Stop: 04/07/22 15:00 Pantoprazole Sodium (Pantoprazole 40 Mg Tab) 40 mg PO DAILY BIJU; Protocol Stop: 04/09/22 08:59 Last Admin: 03/12/22 08:38 Dose: 40 mg Documented by: Risperidone (Risperidone 0.5 Mg Tablet) 0.5 mg PO BID PRN PRN Reason: Anxiety/Agitation Stop: 04/08/22 20:59 Last Admin: 03/10/22 08:23 Dose: 0.5 mg Documented by: Sodium Chloride (Sodium Chloride 0.65% Na Soln 45 Ml ([place])) 1 - 2 sprays NA PRN PRN PRN Reason: Nasal Dryness/Congestion Stop: 04/07/22 15:00 Trazodone HCl (Trazodone Hcl 50 Mg Tab) 50 mg PO HS BIJU Stop: 04/09/22 21:59 Last Admin: 03/11/22 20:39 Dose: 50 mg Documented by: Mental Health & Subst Abuse Tx Therapist Name of Therapist: Jenn Walters [facility] Date of Therapist Appointment: 03/08/22 Post Discharge Appointments Primary Care Physician Name Of Family Doctor: Galen Bynum (1) Depression Depression Type: unspecified Qualified Code(s): F32.A - Depression, unspecified
[2022-03-12] MEDS: NICOTINE POLACRILEX 2 MG GUM MT PRN (20:29)
[2022-03-12] MEDS: traZODone HCL 50 MG TAB PO SCH (22:31)
[2022-03-13] MEDS: buPROPion XL 150 MG TABCR PO SCH (08:02)
[2022-03-13] MEDS: PANTOprazole 40 MG TAB PO SCH (08:02)
--- NOTE | 2022-03-13 11:13 | Psychiatric Progress Note ---
Date of Service March 13, 2022 Impression / Recommendations Impression The patient is a 22 year old with a history of BPD, PTSD, JEANINE, depression who was admitted for worsening depression and command auditory hallucinations with SI and plan. Diagnostically unclear, most likely MDD with psychotic features versus complex PTSD vs activation from SSRI but no hypomanic/manic features, possible cannabis contribution but less likely. No other signs concerning for primary psychotic disorder and no overt disorganized thought content or behaviors. The patient is deemed unstable and requires psychiatric hospitalization for diagnostic clarification, safety and stabilization, medication management and development of further coping skills. 03/13/22: As per Dr. Sesay above, improving, increased insight around cognitive distortions. (1) Major depressive disorder, single episode with psychotic features with anxious distress: (2) Unspecified psychosis not due to a substance or known physiological condition: (3) Post traumatic stress disorder (PTSD): (4) Suicidal ideation: (5) Borderline personality disorder: (6) Depression: 03/13/22: safety planning 03/12/22: Continue current medications. Needs family meeting. 03/11/22: Continue current medications and tx plan. 03/10/22: Stop prazosin, start trazodone. Continue Wellbutrin. Continue risperidone prn. Fasting labs tomorrow AM. Discontinue lexapro. 03/09/22: The patient was admitted to the [facility] ([facility] mental health unit) on q15 min checks (behavioral with suicide precautions) for safety. The patient will participate in group, recreational, and milieu therapies and will be offered additional individual and family sessions as clinically appropriate. -taper lexapro to 10mg qd and then slowly to discontinuation -fasting labs in AM -risperidone 0.5mg BID prn -Wellbutrin XL 150mg qAM -prazosin 1mg qhs Inventory Assets Strengths: employed, trauma survivor, good supports, willing to seek treatment Needs: safety and stabilization, medication adjustment, additional coping skills, increased outpatient services Suicide Risk Level Suicide Risk Level: Moderate (q15 min suicide checks) 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 Chief Complaint "I'm feeling better but not sure how I'll handle things outside of the hospital". Review of Systems Sleep Information Total Hours of Sleep: 6.5 Sleep Comments: pt given trazodone per rn. pt on q-15 minute checks Meal Information Percent Meal Consumed - Breakfast: 500 Percent Meal Consumed - Lunch: 50 Percent Meal Consumed - Dinner: 100 Subjective Subjective Patient was seen & assessed and interval progress reviewed with nursing and social work. complained of some panic like symptoms around self-awareness group yesteardy. Had meeting with mom and friend's mom with whom she lives this am. She is tolerating medication. She feels more like exercising and going outside. Physical Exam Psychiatric Orientation: alert and oriented x 3 Apperance: appropriately dressed and appropriately groomed Eye Contact: good eye contact Motor Behavior: no abnormal motor movements Speech: normal rate/rhythm/volume of speech Affect: euthymic affect Mood: + depressed mood and + anxious mood Thought Process: goal directed thought process Thought Content: reality based without delusions Suicidal Thoughts: denies suicidal thoughts, denies suicidal plan and denies suicidal intent Homicidal Thoughts: denies homicidal thoughts Hallucinations: no auditory hallucinations and no visual hallucinations Cognition: recent memory grossly intact, remote memory grossly intact, attention grossly intact and language grossly intact Estimated Intelligence: consistent with education level Insight: + fair insight Judgement: + fair judgement Vital Signs (Past 24 Hours) Last Vital Signs Temp 36.9 C 03/13/22 06:37 Pulse 79 03/13/22 06:37 Resp 16 03/13/22 06:37 BP 101/62 03/13/22 06:37 Pulse Ox 98 03/08/22 15:00 Results & Data ([facility]) Current Inpatient Medications Current Inpatient Medications: Current Inpatient Medications Acetaminophen (Acetaminophen 325 Mg Tab) 650 mg PO Q4H PRN PRN Reason: Headache or Minor Fever Stop: 04/07/22 15:00 Last Admin: 03/12/22 07:42 Dose: 650 mg Documented by: Al Hydrox/Mg Hydrox/Simethicone (Aluminum/Magnesium Susp 30 Ml Udc) 30 ml PO Q4H PRN PRN Reason: GI Upset Stop: 04/07/22 15:00 Bismuth Subsalicylate (Bismuth Subsalicylate Liqd 236 Ml) 15 ml PO PRN PRN PRN Reason: Loose Stool Stop: 04/07/22 15:00 Bupropion HCl (Bupropion Xl 150 Mg Tabcr) 150 mg PO QAM BIJU Stop: 04/09/22 08:59 Last Admin: 03/13/22 08:02 Dose: 150 mg Documented by: Hydroxyzine HCl (Hydroxyzine Hcl 25 Mg Tab) 50 mg PO HSZ PRN PRN Reason: Insomnia Stop: 04/07/22 15:00 Hydroxyzine HCl (Hydroxyzine Hcl 25 Mg Tab) 25 mg PO Q4H PRN PRN Reason: Anxiety Stop: 04/07/22 15:00 Last Admin: 03/10/22 20:48 Dose: 25 mg Documented by: Ibuprofen (Ibuprofen 600 Mg Tab) 600 mg PO Q8H PRN PRN Reason: Pain Stop: 04/11/22 07:51 Last Admin: 03/12/22 09:13 Dose: 600 mg Documented by: Magnesium Hydroxide (Magnesium Hydroxide Susp 30 Ml Udc) 30 ml PO DAILY PRN PRN Reason: Constipation Stop: 04/07/22 15:00 Nicotine Polacrilex (Nicotine Polacrilex 2 Mg Gum) 1 piece MT PRN PRN PRN Reason: Smoking cessation Stop: 04/11/22 18:27 Last Admin: 03/12/22 20:29 Dose: 1 piece Documented by: Pantoprazole Sodium (Pantoprazole 40 Mg Tab) 40 mg PO DAILY [facility]; Protocol Stop: 04/09/22 08:59 Last Admin: 03/13/22 08:02 Dose: 40 mg Documented by: Risperidone (Risperidone 0.5 Mg Tablet) 0.5 mg PO BID PRN PRN Reason: Anxiety/Agitation Stop: 04/08/22 20:59 Last Admin: 03/10/22 08:23 Dose: 0.5 mg Documented by: Sodium Chloride (Sodium Chloride 0.65% Na Soln 45 Ml ([place])) 1 - 2 sprays NA PRN PRN PRN Reason: Nasal Dryness/Congestion Stop: 04/07/22 15:00 Trazodone HCl (Trazodone Hcl 50 Mg Tab) 50 mg PO HS BIJU Stop: 04/09/22 21:59 Last Admin: 03/12/22 22:31 Dose: 50 mg Documented by: Mental Health & Subst Abuse Tx Psychiatrist Name of Psychiatrist: [facility] Psychiatrist's Date of Appointment with Psychiatrist: 04/29/22 Time of Appointment with Psychiatrist: 10:30am Psychiatric Appointment Comment: [address] Therapist [facility] Date of Therapist Appointment: 03/22/22 Time of Therapist Appointment: 1:30pm Therapy Appointment Comment: [address] [place] Post Discharge Appointments Primary Care [facility] Date of Appointment with PCP: 04/07/22 Time of Appointment with PCP: 3pm Provider Appointment Comment: [id number] [facility] [address] (1) Depression Depression Type: unspecified Qualified Code(s): F32.A - Depression, unspecified
[2022-03-13] MEDS: NICOTINE POLACRILEX 2 MG GUM MT PRN (16:04)
[2022-03-13] MEDS: traZODone HCL 50 MG TAB PO SCH (21:21)
[2022-03-14] MEDS: PANTOprazole 40 MG TAB PO SCH (08:04)
[2022-03-14] MEDS: buPROPion XL 150 MG TABCR PO SCH (08:04)
--- NOTE | 2022-03-14 11:30 | Psychiatric Progress Note ---
Date of Service March 14, 2022 Impression / Recommendations Impression The patient is a 22 year old with a history of BPD, PTSD, JEANINE, depression who was admitted for worsening depression and command auditory hallucinations with SI and plan. Diagnostically unclear, most likely MDD with psychotic features versus complex PTSD vs activation from SSRI but no hypomanic/manic features, possible cannabis contribution but less likely. No other signs concerning for primary psychotic disorder and no overt disorganized thought content or behaviors. The patient is deemed unstable and requires psychiatric hospitalization for diagnostic clarification, safety and stabilization, medication management and development of further coping skills. 03/14/22: ongoing anxiety around ability to handle stressors outside of the hospital. (1) Major depressive disorder, single episode with psychotic features with anxious distress: (2) Unspecified psychosis not due to a substance or known physiological condition: (3) Post traumatic stress disorder (PTSD): (4) Suicidal ideation: (5) Borderline personality disorder: (6) Depression: 03/14/22: continue Wellbutrin, pro/cons list and practice scripting for family around vocational/educational decisions. 03/13/22: safety planning 03/12/22: Continue current medications. Needs family meeting. 03/11/22: Continue current medications and tx plan. 03/10/22: Stop prazosin, start trazodone. Continue Wellbutrin. Continue risperidone prn. Fasting labs tomorrow AM. Discontinue lexapro. 03/09/22: The patient was admitted to the [facility] ([facility] mental health unit) on q15 min checks (behavioral with suicide precautions) for safety. The patient will participate in group, recreational, and milieu therapies and will be offered additional individual and family sessions as clinically appropriate. -taper lexapro to 10mg qd and then slowly to discontinuation -fasting labs in AM -risperidone 0.5mg BID prn -Wellbutrin XL 150mg qAM -prazosin 1mg qhs Inventory Assets Strengths: employed, trauma survivor, good supports, willing to seek treatment Needs: safety and stabilization, medication adjustment, additional coping skills, increased outpatient services Suicide Risk Level Suicide Risk Level: Moderate (q15 min suicide checks) Risk Factors Assessment : Yes Do You Have Access To A Gun?: No Mental Health Diagnoses: Yes Previous Attempt: Yes Family History of Suicide: No Previous Psychiatric Hospitalization: Yes Hopelessness: Yes Protective Factors Assessment 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 Chief Complaint "I need my head and heart to align". Review of Systems Sleep Information Total Hours of Sleep: 7.25 Sleep Comments: pt given trazodone per rn. pt on q-15 minute check Meal Information Percent Meal Consumed - Breakfast: 100 Percent Meal Consumed - Lunch: 100 Percent Meal Consumed - Dinner: 75 Subjective Subjective Patient was seen & assessed and interval progress reviewed with nursing and social work. 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 Physical Exam Psychiatric Orientation: alert and oriented x 3 Apperance: appropriately dressed and appropriately groomed Eye Contact: good eye contact Motor Behavior: no abnormal motor movements Speech: normal rate/rhythm/volume of speech Affect: + depressed affect and + anxious affect Mood: + depressed mood and + anxious mood Thought Process: goal directed thought process Thought Content: reality based without delusions Suicidal Thoughts: denies suicidal thoughts, denies suicidal plan and denies suicidal intent Homicidal Thoughts: denies homicidal thoughts Hallucinations: no auditory hallucinations and no visual hallucinations Cognition: recent memory grossly intact, remote memory grossly intact, attention grossly intact and language grossly intact Estimated Intelligence: consistent with education level Insight: + fair insight Judgement: + fair judgement Vital Signs (Past 24 Hours) Last Vital Signs Temp 36.8 C 03/14/22 06:42 Pulse 74 03/14/22 06:43 Resp 16 03/14/22 06:42 BP 98/65 L 03/14/22 06:43 Pulse Ox 98 03/08/22 15:00 Results & Data ([facility]) Current Inpatient Medications Current Inpatient Medications: Current Inpatient Medications Acetaminophen (Acetaminophen 325 Mg Tab) 650 mg PO Q4H PRN PRN Reason: Headache or Minor Fever Stop: 04/07/22 15:00 Last Admin: 03/12/22 07:42 Dose: 650 mg Documented by: Al Hydrox/Mg Hydrox/Simethicone (Aluminum/Magnesium Susp 30 Ml Udc) 30 ml PO Q4 H PRN PRN Reason: GI Upset Stop: 04/07/22 15:00 Bismuth Subsalicylate (Bismuth Subsalicylate Liqd 236 Ml) 15 ml PO PRN PRN PRN Reason: Loose Stool Stop: 04/07/22 15:00 Bupropion HCl (Bupropion Xl 150 Mg Tabcr) 150 mg PO QAM BIJU Stop: 04/09/22 08:59 Last Admin: 03/14/22 08:04 Dose: 150 mg Documented by: Hydroxyzine HCl (Hydroxyzine Hcl 25 Mg Tab) 50 mg PO HSZ PRN PRN Reason: Insomnia Stop: 04/07/22 15:00 Hydroxyzine HCl (Hydroxyzine Hcl 25 Mg Tab) 25 mg PO Q4H PRN PRN Reason: Anxiety Stop: 04/07/22 15:00 Last Admin: 03/10/22 20:48 Dose: 25 mg Documented by: Ibuprofen (Ibuprofen 600 Mg Tab) 600 mg PO Q8H PRN PRN Reason: Pain Stop: 04/11/22 07:51 Last Admin: 03/12/22 09:13 Dose: 600 mg Documented by: Magnesium Hydroxide (Magnesium Hydroxide Susp 30 Ml Udc) 30 ml PO DAILY PRN PRN Reason: Constipation Stop: 04/07/22 15:00 Nicotine Polacrilex (Nicotine Polacrilex 2 Mg Gum) 1 piece MT PRN PRN PRN Reason: Smoking cessation Stop: 04/11/22 18:27 Last Admin: 03/13/22 16:04 Dose: 1 piece Documented by: Pantoprazole Sodium (Pantoprazole 40 Mg Tab) 40 mg PO DAILY [facility]; Protocol Stop: 04/09/22 08:59 Last Admin: 03/14/22 08:04 Dose: 40 mg Documented by: Risperidone (Risperidone 0.5 Mg Tablet) 0.5 mg PO BID PRN PRN Reason: Anxiety/Agitation Stop: 04/08/22 20:59 Last Admin: 03/10/22 08:23 Dose: 0.5 mg Documented by: Sodium Chloride (Sodium Chloride 0.65% Na Soln 45 Ml ([place])) 1 - 2 sprays NA PRN PRN PRN Reason: Nasal Dryness/Congestion Stop: 04/07/22 15:00 Trazodone HCl (Trazodone Hcl 50 Mg Tab) 50 mg PO HS BIJU Stop: 04/09/22 21:59 Last Admin: 03/13/22 21:21 Dose: 50 mg Documented by: Mental Health & Subst Abuse Tx Psychiatrist Name of Psychiatrist: [facility] Psychiatrist's Date of Appointment with Psychiatrist: 04/29/22 Time of Appointment with Psychiatrist: 10:30am Psychiatric Appointment Comment: [address] Therapist [facility] Date of Therapist Appointment: 03/22/22 Time of Therapist Appointment: 1:30pm Therapy Appointment Comment: [address] Post Discharge Appointments Primary Care Physician Name Of Family Doctor: [facility] Date of Appointment with PCP: 04/07/22 Time of Appointment with PCP: 3pm Provider Appointment Comment: [id number] (1) Depression Depression Type: unspecified Qualified Code(s): F32.A - Depression, unspecified
[2022-03-14] MEDS: NICOTINE POLACRILEX 2 MG GUM MT PRN (15:05)
[2022-03-14] MEDS: traZODone HCL 50 MG TAB PO SCH (21:12)
[2022-03-15] MEDS: buPROPion XL 150 MG TABCR PO SCH (08:06)
[2022-03-15] MEDS: PANTOprazole 40 MG TAB PO SCH (08:07)
[2022-03-15] MEDS: NICOTINE POLACRILEX 2 MG GUM MT PRN (09:49)
--- NOTE | 2022-03-15 12:15 | Psychiatric Progress Note ---
Date of Service March 15, 2022 Impression / Recommendations Impression The patient is a 22 year old with a history of BPD, PTSD, JEANINE, depression who was admitted for worsening depression and command auditory hallucinations with SI and plan. Diagnostically unclear, most likely MDD with psychotic features versus complex PTSD vs activation from SSRI but no hypomanic/manic features, possible cannabis contribution but less likely. No other signs concerning for primary psychotic disorder and no overt disorganized thought content or behaviors. 03/15/22: improving plan: continue current meds and tx plan, safety planning. (1) Major depressive disorder, single episode with psychotic features with anxious distress: (2) Unspecified psychosis not due to a substance or known physiological condition: (3) Post traumatic stress disorder (PTSD): (4) Suicidal ideation: (5) Borderline personality disorder: (6) Depression: Inventory Assets Strengths: employed, trauma survivor, good supports, willing to seek treatment Needs: safety and stabilization, medication adjustment, additional coping skills, increased outpatient services Suicide Risk Level Suicide Risk Level: Moderate (q15 min suicide checks) 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 Chief Complaint "I am learning on how to express myself given this borderline thing is new". Review of Systems Sleep Information Total Hours of Sleep: 7.25 Sleep Comments: pt given trazodone per rn. pt on q-15 minute check Meal Information Percent Meal Consumed - Breakfast: 100 Percent Meal Consumed - Lunch: 0 Percent Meal Consumed - Dinner: 95 Subjective Subjective Patient was seen & assessed and interval progress reviewed with nursing. 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 She has some relief from bills so less anxiety overall. States that while talking through her options she had urges to SIB but no intent here on unit/used coping skills and feels she will be ready to practice outside of the hospital soon. prn Vistaril is helpful. Physical Exam Psychiatric Orientation: alert and oriented x 3 Apperance: appropriately dressed and appropriately groomed Eye Contact: good eye contact Motor Behavior: no abnormal motor movements Speech: normal rate/rhythm/volume of speech Affect: euthymic affect Mood: + anxious mood Thought Process: goal directed thought process Thought Content: reality based without delusions Suicidal Thoughts: denies suicidal thoughts, denies suicidal plan and denies suicidal intent Homicidal Thoughts: denies homicidal thoughts Hallucinations: no auditory hallucinations and no visual hallucinations Cognition: recent memory grossly intact, remote memory grossly intact, attention grossly intact and language grossly intact Estimated Intelligence: consistent with education level Insight: + fair insight Judgement: + fair judgement Vital Signs (Past 24 Hours) Last Vital Signs Temp 36.8 C 03/15/22 06:40 Pulse 68 03/15/22 06:40 Resp 16 03/15/22 06:40 BP 87/54 L 03/15/22 06:41 Pulse Ox 98 03/15/22 06:40 Results & Data ([facility]) Current Inpatient Medications Current Inpatient Medications: Current Inpatient Medications Acetaminophen (Acetaminophen 325 Mg Tab) 650 mg PO Q4H PRN PRN Reason: Headache or Minor Fever Stop: 04/07/22 15:00 Last Admin: 03/12/22 07:42 Dose: 650 mg Documented by: Al Hydrox/Mg Hydrox/Simethicone (Aluminum/Magnesium Susp 30 Ml Udc) 30 ml PO Q4H PRN PRN Reason: GI Upset Stop: 04/07/22 15:00 Bismuth Subsalicylate (Bismuth Subsalicylate Liqd 236 Ml) 15 ml PO PRN PRN PRN Reason: Loose Stool Stop: 04/07/22 15:00 Bupropion HCl (Bupropion Xl 150 Mg Tabcr) 150 mg PO QAM BIJU Stop: 04/09/22 08:59 Last Admin: 03/15/22 08:06 Dose: 150 mg Documented by: Hydroxyzine HCl (Hydroxyzine Hcl 25 Mg Tab) 50 mg PO HSZ PRN PRN Reason: Insomnia Stop: 04/07/22 15:00 Hydroxyzine HCl (Hydroxyzine Hcl 25 Mg Tab) 25 mg PO Q4H PRN PRN Reason: Anxiety Stop: 04/07/22 15:00 Last Admin: 03/10/22 20:48 Dose: 25 mg Documented by: Ibuprofen (Ibuprofen 600 Mg Tab) 600 mg PO Q8H PRN PRN Reason: Pain Stop: 04/11/22 07:51 Last Admin: 03/12/22 09:13 Dose: 600 mg Documented by: Magnesium Hydroxide (Magnesium Hydroxide Susp 30 Ml Udc) 30 ml PO DAILY PRN PRN Reason: Constipation Stop: 04/07/22 15:00 Nicotine Polacrilex (Nicotine Polacrilex 2 Mg Gum) 1 piece MT PRN PRN PRN Reason: Smoking cessation Stop: 04/11/22 18:27 Last Admin: 03/15/22 09:49 Dose: 1 piece Documented by: Pantoprazole Sodium (Pantoprazole 40 Mg Tab) 40 mg PO DAILY [facility]; Protocol Stop: 04/09/22 08:59 Last Admin: 03/15/22 08:07 Dose: 40 mg Documented by: Risperidone (Risperidone 0.5 Mg Tablet) 0.5 mg PO BID PRN PRN Reason: Anxiety/Agitation Stop: 04/08/22 20:59 Last Admin: 03/10/22 08:23 Dose: 0.5 mg Documented by: Sodium Chloride (Sodium Chloride 0.65% Na Soln 45 Ml ([place])) 1 - 2 sprays NA PRN PRN PRN Reason: Nasal Dryness/Congestion Stop: 04/07/22 15:00 Trazodone HCl (Trazodone Hcl 50 Mg Tab) 50 mg PO HS BIJU Stop: 04/09/22 21:59 Last Admin: 03/14/22 21:12 Dose: 50 mg Documented by: Mental Health & Subst Abuse Tx Psychiatrist Name of Psychiatrist: [facility] Psychiatrist's Date of Appointment with Psychiatrist: 04/29/22 Time of Appointment with Psychiatrist: 10:30am Psychiatric Appointment Comment: [address] [place] Therapist [facility] Date of Therapist Appointment: 03/22/22 Time of Therapist Appointment: 1:30pm Therapy Appointment Comment: [place] [place] Post Discharge Appointments Primary Care Physician Name Of Family Doctor: [facility] Date of Appointment with PCP: 04/07/22 Time of Appointment with PCP: 3pm Provider Appointment Comment: [id number] [facility] [address], [place] (1) Depression Depression Type: unspecified Qualified Code(s): F32.A - Depression, unspecified
[2022-03-15] MEDS: traZODone HCL 50 MG TAB PO SCH (22:00)
[2022-03-16] MEDS: buPROPion XL 150 MG TABCR PO SCH (08:11)
[2022-03-16] MEDS: PANTOprazole 40 MG TAB PO SCH (08:11)
[2022-03-16] MEDS ORDERED: DESTROY THIS MEDICATION ONE (09:36)
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
== END 2022-03-16 11:05 | disposition home or self-care (01) | DRG 885 ==
LOC: ED 10:16 → 3S 15:01 → SUATTDRO 15:01